=== PATIENT | female | born 1985 | race Caucasian/White ===

== ENCOUNTER 2016-07-23 15:43 | Emergency (ER) | payer MEDICAID ==
[~2016-07-23] VITALS: Ht 162.6 cm; Wt 55.0 kg
[~2016-07-23 15:43] MED LIST: ACET-2161 PO; AMOX500C2 PO; BENZ9.352 TOP; HYDR-4246 PO
[2016-07-23 15:45] VITALS: Ht 162.6 cm; Wt 55.0 kg
--- NOTE | 2016-07-23 15:45 | NUR ---
SHLOMO NOTE THE FATHER OF PT'S CHILDREN CARRIED PT INTO THE ED STATING PT WAS HAVING A HEART ATTACK OR A STROKE. PT IS UNABLE TO SPEAK FOR HERSELF BUT IS HYPERVENTILATING, HAS CARPAL PEDAL SPASMS AND LIPS APPEAR TO BE CRAMPING, PT IS BEING CARRIED IN THE POSITION. THE MALE STATES UNTIL TODAY HE AND THE PT HAD A GOOD RELATIONSHIP, WILL NOT ELABORATE ON DETAILS OF TODAY BUT STATES HE GOT A TEXT FROM THE PT STATING SHE THOUGHT SHE WAS DYING. PT IS PLACED IN WHEELCHAIR AND TAKEN TO TRIAGE ROOM. PT IS COACHED IN BREATHING AND THEN ALLOWED TO STAY IN THE TRIAGE ROOM ONCE CALMED AND SYMPTOMS REDUCED WHILE WAITING FOR A ROOM ASSIGNMENT. ALL ED ROOMS, PRATT BEDS, AND LOBBY ARE FULL AND THE REASON PT IS LEFT IN THE TRIAGE ROOM.
--- OUTSIDE RECORDS SUMMARY | 2016-07-23 15:47 | XMS REPORT | Continuity of Care Document ---
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 Name Role Phone Jed NAVAS MD Primary Care Physician [phone] Insurance Providers Guarantor David Downs Address [address] [place] [address] Email DENIED/NO TO PT PORT Payer [facility] Policy Number [id number] Subscriber's Name David Downs Cristian Relationship 18 Self Effective Date 16 Expiration Date 16 Advance Directives Directive Response Recorded Date/Time Advanced Directives Type None 04/21/16 5:00pm Chief Complaint and Reason for Visit Chief Complaint Toothache Reason for Visit Pain due to dental caries Problems Active Problems Medical Problem Onset Date Status Abscess of lip Unknown Acute Abscess of lip Unknown Acute Cellulitis Unknown Acute Cellulitis Unknown Acute DENTAL PAIN Unknown Acute Finger contusion Unknown Acute Flank pain Unknown Acute (spontaneous vaginal delivery) Unknown Skin abscess Unknown Acute Term , repeat 02/18/2014 Acute Tooth fracture Unknown Acute UTI Unknown Acute Surgical Problem Onset Date Status Tubal ligation status Unknown Past Problems Medical Problem Onset Date Dental caries into pulp Unknown Pain due to dental caries Unknown Medications Current Home Medications Medication Dose Units Route Directions Days Qty Instructions Start Date Acetaminophen (Acetaminophen Extra Strength) 500 Mg Tablet 2 Tab Oral Every 8 Hours as needed for Pain 04/21/16 Amoxicillin 500 Mg Capsule 1 Cap Oral Three Times A Day 10 Days 30 Capsule 04/21/16 Benzocaine (Oral Pain Relief) 9.35 Gm Gel..gram. 1 Applic Topically As Needed 12/22/16 Hydrocodone/Acetaminophen ([place] 5-325 Tablet) 5-325 Tablet 1-2 Tab Oral Every 6 Hr Prn as needed for Pain 15 Tablet 04/21/16 Past Home Medications Medication Directions Ordered Status [id number] Mg (Cephalexin) 500 Mg Capsule, Mg 11/02/13 Discontinued Escitalopram Oxalate (Lexapro) 10 Mg Tablet, 1 Tab Oral Daily 04/18/08 Discontinued Gabapentin 600 Mg Tablet, 1 Tab Oral Bedtime 01/16/09 Discontinued Hydrocodone/Acetaminophen ([place] 5-325 Tablet) 1 Each Tablet, 1 Tab Oral Every 6 Hours as needed for Pain 05/12/14 Discontinued Ibuprofen 200 Mg Capsule, Unknown Dose Oral Every 4 Hours as needed for Discontinued Medroxyprogesterone Acet (Depo-Provera) 150 Mg/Ml Disp.syrin, Intramusc Q 3 Months 01/16/09 Discontinued Sulfamethoxazole/Trimethoprim (Bactrim Ds Tablet) 1 Each Tablet, 1 Tab Oral Twice A Day 05/12/14 Discontinued Sulfamethoxazole/Trimethoprim (Bactrim Ds) 1 Tab Tablet, 1 Tab Oral Twice A Day 11/02/13 Discontinued Tramadol Hcl (Ultram) 50 Mg Tablet, 50 Mg Oral As Needed 01/16/09 Discontinued Social History Social History Problem Response Recorded Date/Time Onset Date Status Hx Substance Use No 04/21/2016 5:08pm Not Applicable Not Applicable Hx Alcohol Use No 04/21/2016 5:08pm Not Applicable Not Applicable Has the pt used tobacco in the last 12 months Yes 10/16/2015 11:13am Not Applicable Not Applicable Tobacco Usage none 05/15/2014 9:16am Not Applicable Not Applicable Query Response Start Date Stop Date Smoking Status Current every day smoker Hospital Discharge Instructions No hospital discharge instructions. Plan of Care Discharge Date 04/21/16 5:35pm Disposition 01 DISCHARGED HOME, SELF-CARE Condition at Discharge Stable Instructions/Education Provided DI for Dental Pain Prescriptions See Medication Section Referrals Jed NAVAS MD Address: [address] [place] [address] JOSE LOUIS DO Address: [address] [place] [address] [place] [phone] Additional Instructions/Education Take ibuprofen 800mg every 8 hours with food. Take amoxicillin 500mg TID for 10 days. May take norco 5/325mg, 1-2 tabs every 6 hours as needed for pain. Follow with your dentist as scheduled next week. Follow treatment plan. Care Plan and Goals Physician Care Plan Problem: Dental pain due to carries Goal: Follow up with primary care provider Instructions: Take medications and follow care plan as discussed/written Functional Status No functional status results. Allergies, Adverse Reactions, Alerts Allergen Type Severity Reaction Status Last Updated No Known Drug Allergies Allergy Unknown Active 01/17/16 Immunizations Query Response on File Recorded Date/Time Hx Influenza Vaccination Y JAN 2014 10/22/14 2:51am Hx Pneumococcal Vaccination No 10/22/14 2:51am Hx Tetanus, Diptheria, Pertussis Y 03/08/13 10/22/14 2:51am Hx Influenza Vaccination Y JAN 2014 10/22/14 2:51am Hx Tetanus, Diptheria, Pertussis Y 03/08/13 10/22/14 2:51am Tdap Vaccine Hx 08/17/15 10/16/15 11:13am Vital Signs Acute Vital Signs Vital Response Date/Time Temperature (Fahrenheit) 98.5 deg F (96.8 - 99.1) 04/21/2016 5:35pm Temperature (Calculated Celsius) 36.51371 degrees C (36.0 - 37.3) 04/21/2016 5:35pm Pulse Rate (adult) 103 bpm (60 - 100) 04/21/2016 5:35pm Respiratory Rate 20 breaths/min (10 - 20) 04/21/2016 5:35pm O2 Sat by Pulse Oximetry 98 % (90 - 100) 04/21/2016 5:35pm Blood Pressure 148/89 mm Hg 04/21/2016 5:35pm Height (Feet) 5 feet 04/21/2016 5:00pm Height (Inches) 4.00 inches 04/21/2016 5:00pm Weight (Kilograms) 48.300 kg 04/21/2016 5:00pm Body Mass Index (BMI) 18.0 04/21/2016 5:00pm Results No known relevant diagnostic tests, laboratory data and/or discharge summary. Procedures No known history of procedures. Encounters Encounter Location Arrival/Admit Date Discharge/Depart Date Attending Provider Departed Emergency Room [facility] 04/21/16 4:56pm 04/21/16 5: 35pm JAYA MONTERO DO Recent Diagnosis
[2016-07-23 16:22] VITALS: BP 150/70; PULSE 102; RESP 24; TEMP 97.9; O2SAT 100
--- NOTE | 2016-07-23 16:22 | NUR ---
[facility] PT IS UP AND AMBULATORY IN THE TRIAGE ROOM. PT IS NOW BREATHING MORE NORMALLY, REPORTING SHE STILL HAS SOME CRAMPING AND PAIN TO HANDS BUT PT IS ABLE MOVE HANDS AND SPEAK WITH EASE. PT IS MOVING BACK TO LOBBY DUE TO ADDITIONAL PT'S NOW NEEDING TO BE TRIAGED AND NO AVAILABLE ED BEDS AT THIS TIME. PT STATES SHE IS FEELING BETTER AND WILL NOT BE STAYING. PT STATES SHE WILL TALK TO HER DOCTOR MONDAY MORNING ABOUT HER ANXIETY ATTACK BUT WILL RETURN TO THE ED WITH ANY RETURN OR INCREASE IN SYMPTOMS. PT'S MALE FRIENDS STATES THEY HAVE WORKED THINGS OUT AND WILL BE STAYING WITH HER TODAY AND TAKING CARE OF THE KIDS. PT NO LONGER APPEARS TO BE IN ANY ACUTE DISTRESS AND SIGNS [facility] FORM AND IS AMBULATORY OUT OF THE ED WITHOUT DIFFICULITES.
== END 2016-07-23 16:22 | disposition left against medical advice (07) ==
LOC: ED 15:43
DX: Z53.21 Procedure and treatment not carried out due to patient leaving prior to being seen by health care provider (principal)